=== PATIENT | female | born 1955 | race Caucasian/White ===

== ENCOUNTER 2016-10-07 11:58 | Outpatient (CLI) | payer OTHER | END 2016-10-07 11:59 | disposition home or self-care (01) | DX: Z12.31 Encounter for screening mammogram for malignant neoplasm of breast (principal); R92.8 Other abnormal and inconclusive findings on diagnostic imaging of breast; Z80.3 Family history of malignant neoplasm of breast ==

== ENCOUNTER 2016-10-16 12:46 | Outpatient (CLI) | payer OTHER | END 2016-10-16 12:47 | disposition home or self-care (01) | DX: N60.02 Solitary cyst of left breast (principal) ==

== ENCOUNTER 2017-12-12 11:54 | Outpatient (CLI) | payer OTHER ==
--- NOTE | 2017-12-15 17:32 | Mammography Report ---
Procedure Date: 12/12/2017 Accession Number: [id number] / [id number] Procedure: MGN - Screening Mammo Dig Bilat CPT Code: FULL RESULT: EXAM: Screening Mammo Dig Bilat DATE: 12/12/2017 12:17 PM CLINICAL HISTORY: 62-year-old female with a positive family history of breast cancer in the mother at age 78 and in the sister aged 59 as well as an aunt at age 62. TECHNIQUE: Bilateral CC and MLO views were obtained. COMPARISON: 10/31/2016, 04/09/2011, 04/02/2010, 03/22/2009. FINDINGS: The breasts demonstrate diffuse fatty replacement bilaterally. Scattered bilateral typically benign calcifications. No suspicious masses, clustered microcalcifications, or regions of architectural distortion are identified. IMPRESSION: Benign findings RECOMMENDATION: Routine annual screening unless otherwise clinically indicated. BIRADS CATEGORY 2: Benign findings STANDARD QUALIFYING STATEMENTS: 1. This examination was reviewed with the aid of Computer-Aided Detection (CAD). 2. A negative or benign imaging report should not delay biopsy if clinically suspicious findings are present. Consider surgical consultation if warrented. More than 5% of cancers are not identified by imaging. 3. Dense breasts may obscure an underlying neoplasm.
== END 2017-12-12 11:55 | disposition home or self-care (01) ==
LOC: DI.N 11:54
PROVIDERS: ATTEND Family Medicine
DX: Z12.31 Encounter for screening mammogram for malignant neoplasm of breast (principal); Z80.3 Family history of malignant neoplasm of breast
CPT/HCPCS: 77067

== ENCOUNTER 2020-04-06 09:18 | Day surgery (SDC) | payer OTHER ==
[2020-04-06] MEDS ORDERED: fentaNYL 250 MCG/5 ML VIAL IVP ONE (09:19)
[2020-04-06] MEDS ORDERED: MIDAZOLAM 2 MG/2 ML VIAL IVP ONE (09:19)
[2020-04-06] MEDS ORDERED: LACTATED RINGERS 1,000 ML IV ONE ×2 (10:19→11:26)
[2020-04-06 11:46] VITALS: BP 130/99
== END 2020-04-06 09:19 | disposition home or self-care (01) ==
LOC: SDS 09:18
PROVIDERS: ATTEND Surgery
DX: Z12.11 Encounter for screening for malignant neoplasm of colon (principal); K57.30 Diverticulosis of large intestine without perforation or abscess without bleeding; Z86.010 Personal history of colon polyps; Z80.0 Family history of malignant neoplasm of digestive organs
CPT/HCPCS: 45378; J3010; J7120

== ENCOUNTER 2021-01-10 13:42 | Outpatient (CLI) | payer OTHER ==
--- NOTE | 2021-01-11 15:48 | Mammography Report ---
BILATERAL DIGITAL SCREENING MAMMOGRAM 3D/2D: 01/10/2021 CLINICAL: Family history of breast cancer. Routine screening. Comparison is made to exams dated: 12/30/2019 mammogram, 12/21/2018 mammogram, 12/12/2017 mammogram, mammogram, 10/16/2016 ultrasound, and 10/07/2016 mammogram - [facility]. The tissue of both breasts is predominantly fatty. No significant masses, calcifications, or other findings are seen in either breast. There has been no significant interval change. IMPRESSION: NEGATIVE There is no mammographic evidence of malignancy. A 1 year screening mammogram is recommended. This exam was interpreted at Station ID: [id number]. NOTE: For mammograms, a report in lay terms will be sent to the patient. Approximately 15% of breast malignancies will not be visualized mammographically. In the management of a palpable breast mass, a negative mammogram must not discourage biopsy of a clinically suspicious lesion. Electronically Signed By: Jack Landis M.D., jr/nasima:01/10/2021 14:55:32 ACR BI-RADS Category 1: Negative 3341F PARENCHYMAL PATTERN: (F) - The breast(s) demonstrate(s) diffuse fatty replacement. BI-RADS CATEGORY: (1) - 1 RECOMMENDATION: (ANNUAL) - Recommend routine annual screening mammography. [id number] 1 year screening LATERALITY: (B)
== END 2021-01-10 13:43 | disposition home or self-care (01) ==
LOC: DI.N 13:42
DX: Z12.31 Encounter for screening mammogram for malignant neoplasm of breast (principal); Z80.3 Family history of malignant neoplasm of breast

== ENCOUNTER 2022-02-07 13:49 | Outpatient (CLI) | payer OTHER ==
--- NOTE | 2022-02-08 08:03 | Mammography Report ---
BILATERAL DIGITAL SCREENING MAMMOGRAM 3D/2D: 02/07/2022 CLINICAL: Family history of breast cancer. Routine screening. Comparison is made to exams dated: 01/10/2021 mammogram, 12/30/2019 mammogram, 12/21/2018 mammogram, mammogram, and 10/16/2016 mammogram - [facility]. Both breasts are almost entirely fatty (category a/<25% glandular tissue). No significant masses, calcifications, or other findings are seen in either breast. There has been no significant interval change. IMPRESSION: NEGATIVE There is no mammographic evidence of malignancy. A 1 year screening mammogram is recommended. Based on the Tyrer Cuzick model (a risk assessment model) the patients lifetime risk is 13.5% and he r 10 year risk is 6.4%. According to the ACR, ACS, and NCCN guidelines, an annual breast MRI exam [place] with mammogram is recommended if the patients lifetime risk is 20% or greater. This exam was interpreted at Station ID: [id number]. NOTE: For mammograms, a report in lay terms will be sent to the patient. Approximately 15% of breast malignancies will not be visualized mammographically. In the management of a palpable breast mass, a negative mammogram must not discourage biopsy of a clinically suspicious lesion. Electronically Signed By: Javi shaw/nasima:02/07/2022 15:13:41 ACR BI-RADS Category 1: Negative 3341F PARENCHYMAL PATTERN: (F) - The breast(s) demonstrate(s) diffuse fatty replacement. BI-RADS CATEGORY: (1) - 1 RECOMMENDATION: (ANNUAL) - Recommend routine annual screening mammography. [id number] 1 year screening LATERALITY: (B)
== END 2022-02-07 13:50 | disposition home or self-care (01) ==
LOC: DI.N 13:49
PROVIDERS: ATTEND Internal Medicine
DX: Z12.31 Encounter for screening mammogram for malignant neoplasm of breast (principal); Z80.3 Family history of malignant neoplasm of breast

== ENCOUNTER 2022-02-19 09:30 | Outpatient (CLI) | payer OTHER ==
--- NOTE | 2022-02-19 11:14 | DEXA Report ---
PROCEDURE: Dexa Spine and/or Hip INDICATIONS: POST MENOPAUSAL TECHNIQUE: Dual energy x-ray absorptiometry (DXA) was performed on a [employer] System. Regions measur ed are the AP Spine, femoral neck, and if needed forearm. COMPARISON: None. FINDINGS: Lumbar Spine: Bone Mineral Density 1.38 g/cm/cm,T score 1.7, there is sclerosis of L3 and L4. L1 and L2 T-scores are also normal. Left Hip: Bone Mineral Density 1.09 g/cm/cm,T score 0.6, Left Femoral Neck: Bone Mineral Density 0.97 g/cm/cm, T score -0.5, (T score greater or equal to -1.0: NORMAL) (T score from -1.1 to -2.4: OSTEOPENIA) (T score less than or equal to -2.5 to: OSTEOPOROSIS) Impression: Normal bone mineral density. Patients with diagnosis of osteoporosis or osteopenia should have regular bone mineral density assess ment. For those eligible for Medicare, routine testing is allowed once every 2 years. Testing frequ ency can be increased for patients who have rapidly progressing disease or for those who are receivin g medical therapy to restore bone mass. Reviewed by: Jay Nick MD on 02/19/2022 11:12 AM PDT Approved by: Jay Nick MD on 02/19/2022 11:12 AM PDT Station ID: [id number]
== END 2022-02-19 09:31 | disposition home or self-care (01) ==
LOC: DI 09:30
PROVIDERS: ATTEND Internal Medicine
DX: N95.8 Other specified menopausal and perimenopausal disorders (principal)

== ENCOUNTER 2022-08-17 10:39 | Outpatient (CLI) | payer OTHER ==
--- NOTE | 2022-08-17 11:33 | CT Report ---
PROCEDURE: Low Dose Lung Cancer Screen INDICATIONS: NICOTINE DEPENDENCE TECHNIQUE: Noncontrast low-dose axial images were acquired from the pulmonary apices to the posterior costophren ic angles. Multiplanar MIP reformats were then reconstructed. For radiation dose reduction, the follo wing was used: automated exposure control, adjustment of mA and/or kV according to patient size. COMPARISON: None. FINDINGS: Image quality: Excellent. Lungs and pleura: Paraseptal emphysematous changes. No evidence or consolidation. No concerning pulm onary nodule. Airways are patent. Mediastinum: Heart size is normal. No pericardial effusion. No mediastinal adenopathy by size crit eria. Thoracic aorta and central pulmonary arteries are normal in size. Esophagus is normal in [place]. No hiatal hernia. Bones and chest wall: No suspicious bony lesions. No vertebral body compression fractures. No axil emilee or supraclavicular adenopathy by size criteria. The thyroid is normal in size and there are no incidental findings. Abdomen: Visualized upper abdomen solid organs and bowel loops appear normal in the absence of contr ast. IMPRESSION: No concerning pulmonary nodules. If patient meets screening requirements, consider annual CT. Paraseptal emphysematous changes. Reviewed by: León Landis MD on 08/17/2022 10:31 AM [facility] Approved by: León Landis MD on 08/17/2022 10:31 AM [facility] Station ID: [id number]
== END 2022-08-17 10:40 | disposition home or self-care (01) ==
LOC: DI 10:39
PROVIDERS: ATTEND Family Medicine
DX: Z12.2 Encounter for screening for malignant neoplasm of respiratory organs (principal); J43.9 Emphysema, unspecified; F17.290 Nicotine dependence, other tobacco product, uncomplicated

== ENCOUNTER 2024-01-16 08:00 | Outpatient (CLI) | payer MEDICARE ==
[2024-01-16 19:27] LABS: BILIRUBIN,URINE NEGATIVE (NEGATIVE); KETONES,URINE (UA) NEGATIVE (NEGATIVE); LEUKOCYTE ESTERASE, URINE SMALL (NEGATIVE); NITRITE,URINE POSITIVE (NEGATIVE); OCCULT BLOOD,URINE NEGATIVE (NEGATIVE); PH,URINE 5.5 PH (5.0-7.5); PROTEIN,URINE TRACE mg/dL (NEGATIVE); UROBILINOGEN,URINE 2 E.U./dL (NORMAL)
[2024-01-16 20:09] LABS: CLARITY,URINE CLOUDY (CLEAR)
[2024-01-16 20:51] LABS: RBC,URINE 0-5 /HPF (0-5); SQUAMOUS EPITHELIAL CELL,UR FEW Squamous (<= Few)
[2024-01-16 20:52] LABS: BACTERIA,URINE Few /HPF (None Seen)
== END 2024-01-16 23:59 | disposition home or self-care (01) ==
LOC: LAB.N 08:00
PROVIDERS: ATTEND Physician Assistant Medical
DX: R30.0 Dysuria (principal)
CPT/HCPCS: 81001; 87086